=== PATIENT | male | born 1990 | race Caucasian/White ===

== ENCOUNTER → 2016-08-27 | Outpatient (CLI) | payer OTHER ==
--- NOTE | 2016-08-27 19:04 | MR ---
EXAMINATION TYPE: MR lumbar spine wo con DATE OF EXAM: 08/27/2016 6:21 PM COMPARISON: 04/13/2011 HISTORY: low back pain for many years, has gotten worse TECHNIQUE: T1 and T2 axial and sagittal images of the lumbar spine are submitted. FINDINGS: There is no abnormal signal seen within the visualized spinal cord or paraspinal soft tissu es. At L1-2 there is no disc herniation or canal stenosis. No foraminal encroachment. At L2-3 there is no disc herniation or canal stenosis. No foraminal encroachment. At L3-4 there is no disc herniation or canal stenosis. No foraminal encroachment. Mild facet arthropa thy which appears stable At L4-5 there is broad-based central disc bulging with mild effacement of thecal sac. Facet arthropat hy. There is moderate bilateral foraminal encroachment and mild to moderate canal stenosis which appe ars stable. Diminutive spinal canal contributes. At L5-S1 there is focal central disc bulging or protrusion with mild effacement of thecal sac. There is mild bilateral foraminal encroachment which appears stable. There is mild canal stenosis. Diminuti ve spinal canal contributes. Mild facet arthropathy. IMPRESSION: 1. Stable disc bulging L4-5 and L5-S1 with bilateral foraminal encroachment and mild spinal stenosis stable from the previous exam.
== END | disposition home or self-care (01) ==
LOC: RADMRIMAIN 17:42
PROVIDERS: ATTEND Specialist
DX: M48.06 Spinal stenosis, lumbar region (principal); M51.06 Intervertebral disc disorders with myelopathy, lumbar region; M51.27 Other intervertebral disc displacement, lumbosacral region
CPT/HCPCS: 72148

== ENCOUNTER → 2016-09-07 | Outpatient (CLI) | payer OTHER ==
[2016-09-07 12:57] VITALS: BP 154/92; PULSE 78; RESP 16; TEMP 97.9
--- NOTE | 2016-09-07 13:39 | P.PN ---
Subjective This is follow-up visit for this patient with a history of severe and chronic low back pain secondary to lumbar degenerative disc disease lumbar facet arthropathy, patient had a new MRI of the lumbar spine done a few days ago, and it showed L4 5 and L5-S1 lumbar bulging disc disease and L4 5 and L5-S1 lumbar facet arthropathy, patient was scheduled to have a classic "branch block lumbar area but patient did not show up for the injection, and is currently on pain medications 1-naproxen 500 mg twice a day 2-Flexeril 10 mg twice a Patient denies any side effects of the medication, denies excessive drowsiness or sleepiness, denies suicidal ideation, and reports that the current pain medication is NOT helping To control the pain and improve activity of daily livin Physical Examinations : 1-Constitutiona : Cooperative , not in acute distress . 2-HEENT : nech ; supple , no Lymphadenopathy , no Thyromegaly , normal thyroid size . eyes : no ptosis , no icterus, no photophobia . ENT : normal of hearing , normal oropharynx , no Thrush . 3- Respiratory : Chest clear to auscultations Bilaterally , no wheezing , no Rhonchi . 4- Cardiovascular : regular rate and rhythem , S1 , S2 , no S3 , no S4. 5- Gastrointestinal : abdomen soft no tenderness , bowel sounds positive all four quadrents , no organomegally . 6- Genitourinary : Defferred . 7- neurologic : Cranial nerve II to XII intact , no focal neurological deffecit . 8-psychatric : alert , oriented X 3 , appropriate affect , intact judgment and insight . 9-Lymphatic : no Lymphadenopathy . 10- musculoskeltal : exams of the Lumber spine = motor strength lower extremities ,thigh and legs .5/5 deep tendon reflexes : normal Knee Jerk , normal ankle Jerk . lumber facet Loading Test positive strait leg raising test positive at 30 degree , RT ,LT , Fabere test positive RT and positive LT . Range of motion: Range of motion in flexion of the lumbar spine 30 degrees Range of motion range of motion of extension of the lumbar spine 10 Sever tenderness over the Sacroiliac joint on the Right , and Left side Assessment and plan = - Chronic low back pain secondary to lumbar degenerative disc disease , lumbar spondylosis with facet arthropathy without myelopathy - diagnoses, prognosis, and treatment options including but not limited to physical therapy, surgical interventions, interventional therapies , and medication management including narcotics and adjuvant medication were discussed with the patient and all The questions answered -medication management =1-naproxen 500 mg twice a day dispense 60 with 2 refills 2- Flexeril 10 mg twice a day and dispense 60 with 2 refill 3-start patient on Neurontin 100 mg 3 times a day. 4-urine drug screen done today -procedure= scheduled patient to have diagnostic medial branch block lumbar area bilaterally and L3 4/10 for 5/L5-S1 , we will do the diagnostic block Twice,and if he gets more than 50% improvement of his low back pain, then we will do a radiofrequency ablation of the medial branch Objective - Vital Signs Vital signs: Vital Signs Temp 97.9 F 09/07/16 12:53 Pulse 78 09/07/16 12:53 Resp 16 09/07/16 12:53 BP 154/92 09/07/16 12:53 Pulse Ox 97 09/07/16 12:53 Intake & Output 09/06/16 09/07/16 09/07/16 18:59 06:59 18:59 Weight 119.295 kg
== END | disposition home or self-care (01) ==
LOC: PNWHC3 12:45
PROVIDERS: ATTEND Specialist
DX: M51.36 Other intervertebral disc degeneration, lumbar region (principal); M47.816 Spondylosis without myelopathy or radiculopathy, lumbar region; M46.96 Unspecified inflammatory spondylopathy, lumbar region; M51.26 Other intervertebral disc displacement, lumbar region; M51.27 Other intervertebral disc displacement, lumbosacral region; M46.97 Unspecified inflammatory spondylopathy, lumbosacral region; Z79.899 Other long term (current) drug therapy
CPT/HCPCS: 80307 ×2; G0480 ×2; G0463; 80349; 80364; 99211

== ENCOUNTER 2016-09-15 08:10 | Day surgery (SDC) | payer OTHER ==
[2016-09-14 14:29] VITALS: BMI 36.6
[~2016-09-15 08:10] MED LIST: LACTATED RINGERS 1,000 ML IV SCH
[2016-09-15 08:22] VITALS: TEMP 97.7
[2016-09-15] MEDS ORDERED: BUPIVACAINE (PF) 0.5% 30 ML VIAL ONE (09:06)
[2016-09-15] MEDS ORDERED: TRIAMCINOLONE ACETONIDE 40 MG/ML 1 ML VIAL ONE (09:06)
--- NOTE | 2016-09-15 09:32 | P.PCN ---
Date of Procedure: 09/15/16 Procedure(s) Performed: PREOPERATIVE DIAGNOSIS : 1- Lumbar spondylosis with Facet Arthropathy without myelopathy . POSTOPERATIVE DIAGNOSIS: 1- Lumbar spondylosis with Facet Arthropathy without myelopathy . PROCEDURE: Diagnostic bilateral L3 -4 , L4 -5 , and L5-S1 medial branch block under fluoroscopy ANESTHESIA: Local with 1% lidocaine 6 ml only . Patient requested not to have IV sedation EBL: Minimal COMPLICATION: None. IV FLUIDS: 100 mL of normal saline. PROCEDURE INDICATION: Chronic low back pain secondary to Facet arthropathy unresponsive to conservative treatment. PROCEDURE DESCRIPTION: the patient was seen and identified in the preop holding area , risks and benefits and possible complications of the procedure and alternative were discussed with the patient, and the patient agreed to proceed with the procedure and signed the consent, and vital signs monitored during the procedure and fluoroscopy was used to maximize the benefit and accuracy of the needle placement, patient was taken to the procedure room and placed in prone position vital signs monitored in the back prepped with chlorhexidine X3 then under strict sterile technique using a right oblique fluoroscopy ,the junction of the transverse process and the superior articulating process of the right L3- 4 , L4- 5, and L5-S1 vertebra which corresponding to the fluoroscopy image of the eye of the [place] dog on the block side for the medial branches and subsequently , after local infiltration of skin and subcu tissuies with lidocaine 1% one mL at each level ,then 25-gauge Quincke-type needles , 3 needle was used , each one of them placed at the junction of the base of the transverse process and the superior articular process at the appropriate level, and the needle was advanced until the periosteum contacted, needle placement confirmed with AP oblique and lateral view and after appropriate needle placement confirmed, and after negative aspiration for heme and CSF and there was no paresthesia 1-1/2 mL of Marcaine 0.5% mixed with 40 mg Kenalog , then half mL injected at each level after negative aspiration the needle subsequently removed and the same procedure repeated for the left side at left side at L3-4, L4- 5 and L5-S1 levels. At the end of the procedure and the needles removed and a bandage applied after the skin was cleaned the cleaning solution patient taken to recovery room in stable condition and monitors in the recovery room for 20-30 minutes and discharged home in stable condition after discharge criteria met and patient will follow up with the pain clinic in 2-4 weeks
[2016-09-15 09:37] VITALS: RESP 14
[2016-09-15 09:45] VITALS: BP 136/90; PULSE 80
--- NOTE | 2016-09-15 09:50 | FL ---
EXAMINATION TYPE: FL guided pain mgmt statistic DATE OF EXAM: 09/15/2016 9:34 AM HISTORY: Pain FLUORO TIME 11 SECONDS, 4 IMAGES SCANNED,
== END 2016-09-15 09:49 | disposition home or self-care (01) ==
LOC: ORPAIN 08:10
PROVIDERS: ATTEND Specialist
DX: G89.29 Other chronic pain (principal); M47.816 Spondylosis without myelopathy or radiculopathy, lumbar region; M46.96 Unspecified inflammatory spondylopathy, lumbar region
CPT/HCPCS: 64493; 64494; 64495; J3301

== ENCOUNTER 2016-10-21 08:53 | Day surgery (SDC) | payer OTHER ==
[2016-10-21 10:02] VITALS: TEMP 98.3
--- NOTE | 2016-10-21 11:03 | P.PCN ---
Date of Procedure: 10/21/16 Preoperative Diagnosis: #1 severe persistent low back pain #2 bilateral lumbar facet arthropathy #3 degenerative disc disease with disc herniation lumbosacral spine Postoperative Diagnosis: Same as preoperative diagnoses Procedure(s) Performed: #1 right L3 4 lumbar facet injection #2 right L4 5 lumbar facet injection #3 right L5-S1 lumbar facet injection #4 left L3 4 lumbar facet injection #5 left L4 5 lumbar facet injection #6 left L5-S1 lumbar facet injection #7 fluoroscopic assistance to aid with accurate and appropriate needle placement at all locations Anesthesia: MAC, local Surgeon: Jackson Guerrero Estimated Blood Loss (ml): 5 IV fluids (ml): 400 Urine output (ml): 0 Pathology: none sent Condition: stable Disposition: PACU Indications for Procedure: Please refer to history of present illness and the patient's consult and notes from his [facility] pain clinic chart Description of Procedure: DESCRIPTION OF PROCEDURE: Patient was brought to the [facility] procedure room where full external monitors were placed. Supplemental nasal oxygen was applied at 2 L/m. The patient was positioned in the prone position. The operative area was prepped with DuraPrep and sterile drapes sheets were applied. Incremental IV sedation was given by the nursing staff by my orders. The image intensifying fluoroscopic unit was positioned in the right posterior oblique projection at approximately 20 degrees. This allowed me to best identify the lumbar facet joint locations at [L3-S1] . The skin and subcutaneous tissue immediately overlying these facet joint locations was anesthetized with 2 mL of 1% preservative-free Xylocaine. This was approximately 5 cm lateral to the midline on the right side. Again, #22-gauge x 3-1/2-inch spinal needles were inserted through the previously anesthetized area. Again, live fluoroscopic imaging in the right posterior oblique projection was utilized to aid in appropriate needle placement. Once the needle tips were positioned such that they were either within the facet joint themselves or immediately adjacent to the facet joint along the course of the medial branch nerve, it was secured in this location. Following appropriate confirmation of needle position with fluoroscopic imaging, an additional 0.25 mL of Omnipaque contrast was injected through the spinal needle after negative aspiration. Appropriate spread of contrast was noted at each level. Once this had been confirmed, identical therapeutic injectate containing 10 mg of Depo- Medrol, 1 mL of 0.25% preservative-free Marcaine and 0.5 mL of 0.9% preservative-free normal saline solution was injected through each spinal needle after negative aspiration. Excellent washout of the previously injected contrast material was noted with each facet joint injection. Following completion of the facet joint injection on the right side, all needles were removed, hemostasis was easily achieved at all puncture locations and a sterile dressing was applied.
[2016-10-21] MEDS ORDERED: LIDOCAINE 1% INJ 10MG/ML (20 ML MDV) ONE (11:06)
[2016-10-21] MEDS ORDERED: BUPIVACAINE (PF) 0.25% 30 ML VIAL ONE (11:06)
[2016-10-21] MEDS ORDERED: TRIAMCINOLONE ACETONIDE 40 MG/ML 1 ML VIAL ONE (11:06)
--- NOTE | 2016-10-21 11:37 | FL ---
EXAMINATION TYPE: FL guided pain mgmt statistic DATE OF EXAM: 10/21/2016 11:29 AM HISTORY: Pain Bilateral lumbar facets. Dr. Guerrero. 8 sec fluoro. 2 images scanned.
[2016-10-21 11:47] VITALS: BP 128/87; PULSE 89; RESP 18
== END 2016-10-21 12:11 | disposition home or self-care (01) ==
LOC: ORPAIN 08:53
PROVIDERS: ATTEND Anesthesiology
DX: G89.29 Other chronic pain (principal); M54.5 Low back pain; M46.96 Unspecified inflammatory spondylopathy, lumbar region; M51.36 Other intervertebral disc degeneration, lumbar region; M51.27 Other intervertebral disc displacement, lumbosacral region; Z79.1 Long term (current) use of non-steroidal anti-inflammatories (NSAID); Z79.899 Other long term (current) drug therapy
CPT/HCPCS: 64493; 64494; 64495; J3301; J2001

== ENCOUNTER 2016-11-30 08:32 | Day surgery (SDC) | payer OTHER ==
[2016-11-26 11:40] VITALS: BMI 35.2
[2016-11-30 09:13] VITALS: TEMP 98.5
[2016-11-30] MEDS ORDERED: LIDOCAINE 1% 20 ML VIAL (10MG/ML) FOR IV START INTRADERMA ONE (09:25)
[2016-11-30] MEDS ORDERED: fentaNYL (PF) 50 MCG/ML 2 ML AMP ONE (09:27)
[2016-11-30] MEDS ORDERED: MIDAZOLAM 2 MG/2 ML VIAL ONE (09:27)
[2016-11-30] MEDS ORDERED: TRIAMCINOLONE ACETONIDE 40 MG/ML 1 ML VIAL ONE (09:27)
[2016-11-30] MEDS ORDERED: BUPIVACAINE (PF) 0.5% 30 ML VIAL ONE (09:27)
--- NOTE | 2016-11-30 10:02 | P.PCN ---
Date of Procedure: 11/30/16 Procedure(s) Performed: PREOPERATIVE DIAGNOSIS: 1-Lumbar Spondylosis with Facet Arthropathy without myelopathy. POSTOPERATIVE DIAGNOSIS: 1- Lumbar Spondylosis with Facet Arthropathy without myelopathy. PROCEDURES : Right Radiofrequency thermocoagulation, L3-L4, L4-L5, and L5-S1 medial branch, with fluoroscopic guidance ANESTHESIA: Moderate sedation with IV versed 2 mg and fentaneyl 100 mcg and local infiltration with lidocaine 1% 6 ml EBL: Minimal PROCEDURE INDICATION: The patient with low back pain secondary to lumbar facet arthropathy who had more than 50% relief of her pain with previous diagnostic lumbar medial branch block with bupivacaine. PROCEDURE DESCRIPTION / TECHNIQUE: The patient was seen and identified in the preoperative area. Risks, benefits, complications, including but not limited to risk of infection ,bleeding , allergic reactions to the medications and no complete pain releife , and alternatives were discussed with the patient, the patient agreed to proceed with the procedure and signed the consent. IV was started. Vital signs remained stable throughout the procedure. Patient was taken to the OR and time out was completed. The patient was placed in the prone position on the procedure table. The lumber area was prepped and draped in the usual sterile fashion. . Vital signs were closely monitored during the procedure .IV sedation was used during the procedure to decrease patients anxiety. Using AP and then oblique fluoroscopy, the ``eye of the [place] dog corresponding to the connection between the superior and transverse articular processes of right L3, L4, and L5 were identified, marked, and localized with 1 % lidocaine. Subsequently, a 18 -qp ( VENUM ) radiofrequency cannula with a 10-mm active tip was advanced guided by fluoroscopy to each of the `` eyes of the [place] dog at right L3, L4, and L5. Each site then underwent sensory testing at 50 Hz and 0 to 1 volt and motor testing at 2.5 Hz and 0 to 3 volt with local stimulation, but no radicular symptoms down the legs. Thereafter the right L3-4, L4-5, and L5-S1 sites underwent radiofrequency thermocoagulation at 80 degrees celsius for 90 seconds after injecting 0.5 ml of PF lidocaine 1%. then After the thermocoagulation done , 1 ml of the block solution containing Kenalog 40 mg and 3 ml of marain 0.5% was injected at the right L3-4 , L4-5 , and L5-S1, levels after negative aspiration of CSF and blood and with no paresthesias. Cannulas were retracted while injecting lidocaine 1% until the needle is out. At the end of the procedure, the skin was cleansed and bandages were applied. COMPLICATIONS: No acute complications. DISPOSITION / PLANS: The patient was placed in a supine position and transferred to the recovery area in a stable condition for observation and was discharged from the recovery room after meeting discharge criteria. Home discharge instructions given to the patient by the staff. The patient was reexamined prior to discharge. The patient will schedule a follow up in the clinic in 2-4 weeks. I gave prescription refill for Flexeril 10 mg twice a day dispence 60 with 1 refill, naproxen 500 mg twice a day dispense 60 with 1 refill,, so patient was instructed to stop the Neurontin because he had side effects to Neurontin which is severe nightmare, for this reason we discontinued the Neurontin , and patient will be started on Lyrica 25 mg 3 times a day dispense 90 with one refile .
[2016-11-30 10:27] VITALS: BP 136/86; PULSE 76; RESP 16
[2016-11-30] MEDS ORDERED: IV FLUID CONTINUATION 1,000 ML IV ONE (10:29)
--- NOTE | 2016-11-30 10:58 | FL ---
EXAMINATION TYPE: FL guided pain mgmt statistic DATE OF EXAM: 11/30/2016 10:05 AM HISTORY: Pain Lumbar epidural injection was performed. 10 seconds of fluoroscopic time was provided by the departm ent of radiology. Four image was provided for documentation purposes.
== END 2016-11-30 10:50 | disposition home or self-care (01) ==
LOC: ORPAIN 08:32
PROVIDERS: ATTEND Specialist
DX: M47.816 Spondylosis without myelopathy or radiculopathy, lumbar region (principal); M46.96 Unspecified inflammatory spondylopathy, lumbar region
CPT/HCPCS: 64635; 64636 ×2; 99152; J2250; J3301; J3010

== ENCOUNTER 2016-12-23 08:04 | Day surgery (SDC) | payer OTHER ==
[2016-12-22 11:02] VITALS: BMI 35.5
[2016-12-23 08:26] VITALS: RESP 18; TEMP 98.3
[2016-12-23] MEDS ORDERED: LIDOCAINE 1% 20 ML VIAL (10MG/ML) FOR IV START INTRADERMA ONE (08:29)
[2016-12-23] MEDS ORDERED: DEXAMETHASONE SOD PHOS (MDV) 100 MG/10 ML VIAL ONE (09:25)
[2016-12-23] MEDS ORDERED: fentaNYL (PF) 50 MCG/ML 2 ML AMP ONE (09:25)
[2016-12-23] MEDS ORDERED: MIDAZOLAM 2 MG/2 ML VIAL ONE (09:25)
[2016-12-23] MEDS ORDERED: BUPIVACAINE (PF) 0.5% 30 ML VIAL ONE (09:25)
--- NOTE | 2016-12-23 09:53 | P.PCN ---
Date of Procedure: 12/23/16 Preoperative Diagnosis: Postoperative Diagnosis: Procedure(s) Performed: PREOPERATIVE DIAGNOSIS: 1-Lumbar Spondylosis with Facet Arthropathy without myelopathy.. POSTOPERATIVE DIAGNOSIS: 1- Lumbar Spondylosis with Facet Arthropathy without myelopathy.. PROCEDURES : Left Radiofrequency thermocoagulation, L3-L4, L4-L5,, and L5-S1 medial branch, with fluoroscopic guidance ANESTHESIA: IV sedation with versed 2 mg and fentaneyl 100 mcg and local infiltration with lidocaine 1% 6 ml EBL: Minimal PROCEDURE INDICATION: The patient with low back pain secondary to lumbar facet arthropathy who had more than 50% relief of her pain with previous diagnostic lumbar medial branch block with bupivacaine. PROCEDURE DESCRIPTION / TECHNIQUE: The patient was seen and identified in the preoperative area. Risks, benefits, complications, including but not limited to risk of infection ,bleeding , allergic reactions to the medications and no complete pain releife , and alternatives were discussed with the patient, the patient agreed to proceed with the procedure and signed the consent. IV was started. Vital signs remained stable throughout the procedure. Patient was taken to the OR and time out was completed. The patient was placed in the prone position on the procedure table. The lumber area was prepped and draped in the usual sterile fashion. . Vital signs were closely monitored during the procedure .IV sedation was used during the procedure to decrease patients anxiety. Using AP and then oblique fluoroscopy, the ``eye of the [place] dog corresponding to the connection between the superior and transverse articular processes of left L3, L4, and L5 were identified, marked, and localized with 1 % lidocaine. Subsequently, a 18 -om (VENUM ) radiofrequency cannula with a 10-mm active tip was advanced guided by fluoroscopy to each of the `` eyes of the [place] dog at left L3, L4, and L5. Each site then underwent sensory testing at 50 Hz and 0 to 1 volt and motor testing at 2.5 Hz and 0 to 3 volt with local stimulation, but no radicular symptoms down the legs. Thereafter the left L3-4, L4-5, and L5-S1 sites underwent radiofrequency thermocoagulation at 80 degrees celsius for 90 seconds after injecting 0.5 ml of PF lidocaine 1%. hen After the thermocoagulation done , 1 ml of the block solution containing Dexamethasone 10 mg and 3 ml of marain 0.5% was injected at the left L3-4 , L4-5 , and L5-S1, levels after negative aspiration of CSF and blood and with no paresthesias. Cannulas were retracted while injecting lidocaine 1% until the needle is out. At the end of the procedure, the skin was cleansed and bandages were applied. COMPLICATIONS: No acute complications. DISPOSITION / PLANS: The patient was placed in a supine position and transferred to the recovery area in a stable condition for observation and was discharged from the recovery room after meeting discharge criteria. Home discharge instructions given to the patient by the staff. The patient was reexamined prior to discharge. The patient will schedule a follow up in the clinic in 2-4 weeks. Implants: Indications for Procedure: Operative Findings: Description of Procedure:
--- NOTE | 2016-12-23 10:21 | FL ---
EXAMINATION TYPE: FL guided pain mgmt statistic DATE OF EXAM: 12/23/2016 CLINICAL HISTORY: Low back pain. TECHNIQUE: Fluoroscopy. COMPARISON: None. FINDINGS: Fluoroscopic guidance was provided during pain relief procedure performed by Dr. Santiago . A total of 14 seconds of fluoroscopic time was utilized during the procedure and two spot images a re acquired. Images acquired shows needle localization at several levels in the lower lumbar spine o ff the midline. IMPRESSION: As Above.
[2016-12-23 10:30] VITALS: BP 136/84; PULSE 75
[2016-12-23] MEDS ORDERED: IV FLUID CONTINUATION 1,000 ML IV ONE (10:33)
== END 2016-12-23 10:37 | disposition home or self-care (01) ==
LOC: ORPAIN 08:04
PROVIDERS: ATTEND Specialist
DX: M47.816 Spondylosis without myelopathy or radiculopathy, lumbar region (principal); M46.96 Unspecified inflammatory spondylopathy, lumbar region
CPT/HCPCS: 64635; 64636 ×2; 99152; J2250; J3010; J1100